=== PATIENT | female | born 1990 | race Caucasian/White ===

== ENCOUNTER 2020-10-12 11:45 | Day surgery (SDC) | payer MEDICAID ==
[~2020-10-12] VITALS: Ht 162.6 cm; Wt 163.6 kg
--- NOTE | ~2020-10-12 | OP ---
PATIENT NAME: RAYMUNDO GONZALEZ MEDICAL RECORD: [id number] :89 LOCATION:[facility] ADMISSION DATE: SURGEON: ANTONELLA BACK MD DATE OF OPERATION: 10/12/2020 PROCEDURE: Colonoscopy. PREOPERATIVE DIAGNOSES: Rectal itching and rectal pain. MEDICATION: Propofol per anesthesia. DESCRIPTION OF PROCEDURE: Colonoscopy was performed. The colonoscope was inserted through the rectum and advanced to the cecum, identified by the ileocecal valve and appendiceal orifice. The quality of the prep was good. There were multiple sigmoid and descending colon diverticula visualized. There was a small sigmoid polyp. This was removed with cold biopsy forceps. There were medium sized internal hemorrhoids viewed on retroflexion. The remainder of the exam was normal. The patient tolerated the procedure well. FINAL DIAGNOSES: Multiple diverticula in the sigmoid and descending colon. Small sigmoid polyp removed with cold biopsy forceps. Nonbleeding internal hemorrhoids. PLAN: Advance diet. Recommended fiber supplements. Return to GI office. TRANSINT:[id number] Voice Confirmation ID: [id number] DOCUMENT ID: [id number] ANTONELLA BACK MD CC: [id number] DICTATION DATE: 10/12/20 152 [employer]: 10/13/20 0014 [facility] [place]/12/20 [facility] [address] [id number]
[2020-10-12 12:21] LABS: BASOPHILS 0.5 % (0-2); EOSINOPHILS 3.2 % (0-7); HEMATOCRIT 43.6 % (36.0-48.0); HEMOGLOBIN 13.7 g/dL (12-16); IMMATURE GRANULOCYTES 0.2 % (0-5); LYMPHOCYTE ABS# 2.13 10x3/uL (1.18-3.74); LYMPHOCYTES 25.2 % (15-50); MCH 24.3 pg (26.0-34.0); MCHC 31.4 g/dL (31.0-37.0); MCV 77.4 fL (80.0-100.0); MEAN PLATELET VOLUME 10.3 fL (7.4-10.4); NEUTROPHIL ABS# 5.49 10x3/uL (1.56-6.13); NEUTROPHILS 64.9 % (40-80); PLATELET COUNT 405 10x3/uL (130-400); RBC 5.63 10x6/uL (4.00-5.40); RDW 14.1 % (11.5-14.5); WBC 8.5 10x3/uL (4.8-10.8)
[2020-10-12 12:28] LABS: CALC OSMOLALITY 282 mosm/kg (275-300); CALCIUM 9.3 mg/dL (8.5-10.1); CARBON DIOXIDE 24.3 mmol/L (21.0-32.0); CHLORIDE - SERUM 107 mmol/L (98-107); CREATININE - SERUM 0.9 mg/dL (0.6-1.3); GLUCOSE 84 mg/dL (74-106); SODIUM 143 mmol/L (136-145); UREA NITROGEN 10 mg/dL (7-18); eGFR NON AFRICAN AMERICAN 78 mL/min (90-120)
[2020-10-12 12:31] LABS: HCG SERUM NEGATIVE (NEGATIVE)
[2020-10-12] MEDS ORDERED: PROPRANOLOL HCL20 MG PO (13:26)
[2020-10-12] MEDS ORDERED: COZAAR50 MG PO (13:36)
[2020-10-12] MEDS ORDERED: FUROSEMIDE20 MG PO (13:38)
[2020-10-12] MEDS ORDERED: GABAPENTIN300 MG PO (13:38)
[2020-10-12] MEDS ORDERED: [UNRECOGNIZED DRUG - OTHER] (13:39)
[2020-10-12] MEDS ORDERED: ALDACTONE25 MG PO (13:40)
[2020-10-12 13:41] VITALS: Ht 162.6 cm; Wt 163.6 kg
--- NOTE | 2020-10-12 16:16 | NUR ---
DR. BACK HAS SPOKEN WITH . IV D/C'D WITH CANNULA INTACT, PRESSURE HELD AND DRSG PLACED. DISCHARGE INSTRUCTIONS GIVEN AND PT VERBALIZED AN UNDERSTANDING
== END 2020-10-12 15:45 | disposition home or self-care (01) ==
LOC: D.OPS 11:45
PROVIDERS: Anesthesiology; ATTEND Internal Medicine Gastroenterology
DX: K62.89 Other specified diseases of anus and rectum (principal); K63.5 Polyp of colon; R19.5 Other fecal abnormalities